=== PATIENT | male | born 1985 | race Two or more races ===

== ENCOUNTER 2016-12-25 18:25 | Emergency (ER) | payer SELFPAY ==
[~2016-12-25] VITALS: Ht 188 cm; Wt 95.3 kg
[~2016-12-25 18:25] MED LIST: BACITRACIN3.5 GM OP; BACTRIM-DS1 EA ORAL; IBUPROFEN600 MG ORAL
[2016-12-25 18:46] VITALS: BP 118/76
[2016-12-25] MEDS ORDERED: Lidocaine 1% MPF 10mg/ml 5ml INJ ONE (19:00)
[2016-12-25] MEDS ORDERED: TdaP Vaccine 0.5ml Syr IM ONE (19:00)
[2016-12-25] MEDS ORDERED: Bacitracin Oint UD TOPIC ONE (19:00)
[2016-12-25] MEDS ORDERED: IBUPROFEN600 MG ORAL (19:47)
[2016-12-25] MEDS ORDERED: AUGMENTIN 500-1 EACH ORAL (19:47)
[2016-12-25 19:55] VITALS: BP 118/76
--- NOTE | 2016-12-25 21:13 | Emergency Room Report ---
History of Present Illness General Chief Complaint: Puncture Wound Source: Patient Present Illness HPI The patient is a 31-year-old male presenting with possible infection of the right middle finger. The patient states that he had a splinter enter the finger 4 days prior and has now become swollen and has increased in pain. Pain is described as a 10 out of 10 dull ache and does not radiate. Pain worse with touch and movement. He noticed white discharge yesterday. He denies any other symptoms including nausea, vomiting, fever, chills, numbness or tingling Last tetanus shot was more than 10 years prior Allergies: Coded Allergies: No Known Allergies (Unverified , 05/27/16) Patient History Past Medical History: see triage record Pertinent Family History: none Reviewed Nursing Documentation: PMH: Agreed, PSxH: Agreed Nursing Documentation-PMH Past Medical History: No Stated History Review of Systems All Other Systems: negative except mentioned in HPI Physical Exam Vital Signs Date Time Temp Pulse Resp B/P Pulse Ox O2 Delivery O2 Flow Rate FiO2 12/25/16 18:36 99.7 105 16 118/76 97 Room Air Sp02 EP Interpretation: reviewed, normal General Appearance: no apparent distress, alert, GCS 15, non-toxic Head: normocephalic, atraumatic Eyes: bilateral eye PERRL, bilateral eye normal inspection ENT: hearing grossly normal, normal pharynx, no angioedema, normal voice Musculoskeletal: back normal, gait/station normal, normal range of motion, swelling - R middle finger, tender - R middle finger Neurologic: alert, oriented x3, responsive, motor strength/tone normal, sensory intact, speech normal Psychiatric: judgement/insight normal, memory normal, mood/affect normal, no suicidal/homicidal ideation Skin: normal color, well hydrated Lymphatic: no adenopathy Procedures Incision and Drainage Incision and Drainage : Consent: Verbal Site: R middle finger Blade Size: 11 I & D Procedure: betadine prep, sterile drapes applied, sterile dressing applied Wound Location: upper extremity Wound's Depth, Shape: linear Wound Length (cm): 2 Wound Explored: contaminated Irrigated w/ Saline (ccs): 100 Anesthesia: 1% Lidocaine Volume Anesthetic (ccs): 5 Splint Applied?: No Sling Applied?: No Patient Tolerated: Well Complications: None Medical Decision Making PA Attestation Dr. Hunter is my supervising physician. Patient management was discussed with my supervising physician Diagnostic Impression: Primary Impression: Puncture wound Additional Impression: Abscess ER Course The patient is a 31-year-old male presenting with possible infection of the right middle finger. Differential diagnoses considered but not limited to: abscess, cellulitis, insect bite, foreign body PE: Vitals WNL. NAD Right hand: There is diffuse swelling with fluctuant to the mid palmar surface of the middle finger. Tenderness to palpation. There is full active range of motion Sensation is intact Betadine prep was used to clean the skin and surrounding area. One percent lidocaine without epinephrine was used to anesthetize the are of planned incision. A #11 blade was used to make an incision in the central area of fluctuance approximately 1/3 the size of the diameter of the abscess. Once the incision was made, purulent material was expressed with blood. Blunt dissection was then used to release loculations and expressed more purulent material. Once only blood appeard to be expressed from the incision, normal saline was used to irrigate the inside of the abscess. The wound was then cleaned and sterile dressing applied. The patient is placed on Augmentin and will be discharged. ER precautions are given Other X-Ray Diagnostic Results Other X-Ray Diagnostic Results : X-Ray Ordered: R hand Date: Dec 25, 2016 EP Interpretation: Yes Findings: no fractures, no dislocation, other - + STS Number of Views: 3 PA Scribe Text I am acting as scribe for my supervising physician. My supervising physician's interpretation of the R hand xrays are there are no fractures, dislocations. There is + STS Last Vital Signs Date Time Temp Pulse Resp B/P Pulse Ox O2 Delivery O2 Flow Rate FiO2 12/25/16 19:55 99.7 16 118/76 97 Room Air 12/25/16 18:36 105 Status: improved Disposition: HOME, SELF-CARE Condition: Improved Scripts Amoxicillin/Potassium Clav 500-125 Tablet* (AUGMENTIN 500-125 TABLET*) 1 Each Tablet 1 TAB ORAL THREE TIMES A DAY, #21 TAB Prov: TERZIAN,LOI P.A. 12/25/16 Ibuprofen* (MOTRIN*) 600 Mg Tablet 600 MG ORAL Q8H Y for For Pain, #30 TAB 0 Refills Prov: TERZIAN,LOI P.A. 12/25/16 Referrals: NOT CHOSEN [facility]/MD,REFERRING (PCP) Patient Instructions: Abscess, Puncture Wound Additional Instructions: I discussed my findings with the patient. All questions and concerns have been answered. Treatment and medication compliance have been addressed. I advised the patient that they need to follow up with PMD in 3-5 days. Return to ED if symptoms worsen, new symptoms arise such as fever, or if needed for any reason. Patient verbalized understanding of discharge instructions. LOI HENAO Dec 25, 2016 21:13
--- NOTE | 2016-12-26 16:37 | Diagnostic Imaging Report ---
Indication: pain Findings: 3 views of the right hand were obtained. There is soft tissue swelling involving the third digit of the right hand. There is no obvious fracture or malalignment. Impression: Soft tissue swelling in the clinical region of interest.
== END 2016-12-25 19:58 | disposition home or self-care (01) ==
LOC: EMR 19:34
DX: S61.232A Puncture wound without foreign body of right middle finger without damage to nail, initial encounter (principal); X58.XXXA Exposure to other specified factors, initial encounter; Y92.89 Other specified places as the place of occurrence of the external cause; L02.511 Cutaneous abscess of right hand; Z23 Encounter for immunization
CPT/HCPCS: 10060; 90471; 90715; 96372

== ENCOUNTER 2018-01-31 18:23 | Emergency (ER) | payer SELFPAY ==
[~2018-01-31] VITALS: Ht 188 cm; Wt 99.8 kg
[~2018-01-31 18:23] MED LIST changes: +AUGMENTIN 500-1 EACH ORAL
[2018-01-31 18:56] VITALS: BP 143/94
[2018-01-31] MEDS ORDERED: CEPHALEXIN500 MG ORAL (18:58)
[2018-01-31] MEDS ORDERED: BACTRIM DS TAB1 EAC1 ORAL (18:58)
--- NOTE | 2018-01-31 18:58 | Emergency Room Report ---
History of Present Illness General Chief Complaint: Skin Rash/Abscess Source: Patient Present Illness HPI 32-year-old male patient presents ER complaining abscess and lower abdomen. Reports was stuck by a piece metal 3 days ago and swelling and drainage has increased since that time. Reports up to date on tetanus vaccinations. Reports tenderness to palpation. Denies fever, chest pain, shortness of breath , difficulty breathing, pain with ambulation or difficulty ambulate.patient reports was trying to treat at home but swelling grew worse and decided to come to ER. Allergies: Coded Allergies: No Known Allergies (Unverified , 05/27/16) Patient History Past Medical History: see triage record Reviewed Nursing Documentation: PMH: Agreed; PSxH: Agreed Nursing Documentation-PMH Past Medical History: No Stated History Review of Systems All Other Systems: negative except mentioned in HPI Physical Exam Vital Signs Date Time Temp Pulse Resp B/P (MAP) Pulse Ox O2 Delivery O2 Flow Rate FiO2 01/31/18 18:29 97.9 104 20 143/94 99 Room Air 97.9 Sp02 EP Interpretation: reviewed, normal General Appearance: well appearing, no apparent distress, alert, GCS 15, non- toxic Head: normocephalic, atraumatic ENT: hearing grossly normal, normal pharynx, no angioedema, normal voice, uvula midline, moist mucus membranes Neck: full range of motion Respiratory: lungs clear, normal breath sounds, no rhonchi, no respiratory distress, no accessory muscle use, no wheezing, speaking full sentences Cardiovascular #1: regular rate, rhythm, no edema Musculoskeletal: back normal, digits/nails normal, gait/station normal, normal range of motion, non-tender Neurologic: alert, oriented x3, responsive, motor strength/tone normal, sensory intact Psychiatric: mood/affect normal Skin: other - 3cm indurated abscess on left lower abdomen near belt line, dry pus noted, no active drainage, no bleeding Medical Decision Making PA Attestation Dr. Hunter is my supervising Physician whom patient management has been discussed with. Diagnostic Impression: Primary Impression: Abscess ER Course Pt. presents to the ED c/o abscess Ddx considered but are not limited to rash, cellulitis, abscess, sebaceous cyst , carbuncle, folliculitis. Does not require imaging at this time. Vital signs: are WNL, pt. is afebrile ED INTERVENTIONS: On physical exam, indurated abscess, erythema, TTP, no fluctuance. she does not believe patient requires I&D at this time. Patient up to date on vaccinations, does not require TDAP at this time. Applied bacitracin and sterile gauze to wound. Will provide patient with pain medication and first dose of antibiotic treatment in ER. Patient seen and evaluated by Dr. Hunter, agrees with treatment and plan. patient instructed to apply warm compresses to area. Keep area clean and dry. Follow-up with PCP in 2-3 days for wound check. Return to ER for new or worsening of symptoms. DISCHARGE: -Rx provided for Keflex -Rx provided for Bactrim At this time pt. is stable for d/c to home. Patient is resting comfortably, in no acute distress, nontoxic appearing. Will provide printed patient care instructions and any necessary prescriptions. Care plan and follow up instructions have been discussed with the patient prior to discharge. Patient instructed to follow-up with primary care provider in 2 - 3 days for wound recheck. Patient questions asked and answered. Patient reports understanding and agreement to treatment plan. ER precautions given. Patient instructed to return to ER immediately for any new or worsening of symptoms including but not limited to fever, worsening of pain symptoms, worsening of erythema, red streaking. - Please note that this Emergency Department Report was dictated using [employer] engineer technology software, occasionally this can lead to erroneous entry secondary to interpretation by the dictation equipment. Last Vital Signs Date Time Temp Pulse Resp B/P (MAP) Pulse Ox O2 Delivery O2 Flow Rate FiO2 01/31/18 18:29 97.9 104 20 143/94 99 Room Air 97.9 Disposition: HOME, SELF-CARE Condition: Stable Scripts Trimethoprim/Sulfamethoxazole 160/800* (BACTRIM DS TABLET*) 1 Each Tablet 1 TAB ORAL TWICE A DAY, #13 TAB Prov: Carlos Alberto Linda P.A. 01/31/18 Cephalexin* (KEFLEX*) 500 Mg Capsule 500 MG ORAL EVERY 12 HOURS, #13 CAP 0 Refills Prov: Carlos Alberto Linda P.A. 01/31/18 Patient Instructions: Abscess Additional Instructions: Followup with primary care provider in 2-3 days for wound check and further referral. Take medications as directed. Complete full course of abx. Apply warm compresses. Patient questions asked and answered. ER precautions given, patient instructed to return to ER immediately for any new or worsening of symptoms. Carlos Alberto Linda Jan 31, 2018 18:58
[2018-01-31] MEDS ORDERED: Cephalexin 500mg cap ORAL ONE (19:00)
[2018-01-31] MEDS ORDERED: Bactrim-DS 1 tab ORAL ONE (19:00)
[2018-01-31] MEDS ORDERED: Bacitracin Oint UD TOPIC ONE (19:15)
[2018-01-31 19:24] VITALS: BP 143/94
== END 2018-01-31 19:16 | disposition home or self-care (01) ==
LOC: EMR 18:40
DX: L02.211 Cutaneous abscess of abdominal wall (principal)
CPT/HCPCS: 99284